=== PATIENT | male | born 1985 | race Caucasian/White ===

== ENCOUNTER 2021-02-26 02:28 | Day surgery (SDC) | payer BC, SELFPAY ==
[2021-02-08 14:44] VITALS: BMI 29.9
--- NOTE | 2021-02-26 07:20 | PM.HPGS ---
History of Present Illness History of Present Illness Consent: Risks, benefits, and alternatives have been discussed and questions answered. Patient agrees to proceed with procedure. Chief complaint: family hx of colon polyps Narrative: Michel Paula is a 35 year old male Colon cancer screening. His father had polyps at an early age. Review of Systems Review of Systems: All systems reviewed & are unremarkable except as noted in HPI and below PMFSH Family History Family History Mother Hypertension Social History Social History Alcohol intake: current Drinks per week: 14 Living arrangements: with family Meds Home Medications and Allergies Home Medications Medication Instructions Recorded Confirmed Type clomiphene citrate 50 mg PO DAILY 02/08/21 02/26/21 History Allergies Allergy/AdvReac Type Severity Reaction Status Date / Time Penicillins Allergy Unknown Hives Verified 02/26/21 11:23 Exam Const: General: alert Orientation/consciousness: patient oriented x3 Resp: Auscultation: clear to auscultation bilaterally Cardio: Rhythm: regular rhythm GI: GI Palp: Yes Soft to palpation and No Tenderness to palpation present (GI) Neuro: General: patient oriented x3 Assessment and Plan Assessment and plan (1) Colon cancer screening: Code(s): Z12.11 - Encounter for screening for malignant neoplasm of colon Status: Acute Assessment and Plan: Colonoscopy with possible biopsy or polypectomy or cautery or injection of substances.
--- NOTE | 2021-02-26 07:55 | P.PNAN_ITS ---
Anes - Initial Pre Proc Eval Procedure: Operation Date: 02/26/21 12:30 Proposed Procedures p Screening Colonoscopy - Dago Lucero MD Date/Time: 02/26/21 07:55 Surgeon: Dago Lucero MD Pre Op Diagnosis: family hx of colon polyps Patient Data Age: 35 Gender: M Height: 1.75 m Weight: 92 kg Allergies Allergy/AdvReac Type Severity Reaction Status Date / Time Penicillins Allergy Unknown Hives Verified 02/26/21 11:23 Home Medications Medication Instructions Recorded Confirmed Type clomiphene citrate 50 mg PO DAILY 02/08/21 02/08/21 History Patient hx anesthesia problems: none Family hx anesthesia problems: none Results Review: All pre-operative results and documents have been reviewed as part of the pre-operative evaluation. [facility] Family History Family History (Updated 10/17/13 @ 07:13 by DOCTOR UNKNOWN) Mother Hypertension Social History Social History Alcohol intake: current Drinks per week: 14 Living arrangements: with family Anes - Eval Final PreProcedure Day of Procedure 02/26/21 07:55 Patient weight: obese Heart: regular rate and rhythm Lungs: clear to auscultation and normal air movement Airway: Mallampati scale class II Neurological: alert and oriented Last oral intake: >/= 8 hours ASA classification: III Emergent: no Anesthetic plan: proceed Anesthesia type and monitoring: general GIVS and standard monitoring Results Review: All pre-operative results and documents have been reviewed as part of the pre-operative evaluation. Informed Consent: The patient's anesthetic plan and its attendant risks and benefits were discussed with the patient/family/POA. Questions were solicited and answers provided to the satisfaction of the patient/family/POA.
[2021-02-26 11:24] VITALS: BP 118/80; PULSE 86; RESP 16; TEMP 36.8; O2SAT 100
[2021-02-26] MEDS: LACTATED RINGERS 1,000 ML 150 ML IV CONT (11:37)
[2021-02-26 11:57] VITALS: BP 117/63; PULSE 80; RESP 17; O2SAT 96
[2021-02-26 12:07] VITALS: BP 125/95; PULSE 83; RESP 17; O2SAT 98
[2021-02-26 12:17] VITALS: BP 128/78; PULSE 64; RESP 18; O2SAT 100
== END 2021-02-26 12:28 | disposition home or self-care (01) ==
PROVIDERS: PCP Family Medicine Adolescent Medicine; Visit Provider Internal Medicine Gastroenterology
PROC: 0DJD8ZZ Inspection of Lower Intestinal Tract, Via Natural or Artificial Opening Endoscopic (ICD-10-PCS; CPT 45378; principal; 2021-02-26 12:30)
DX: Z12.11 Encounter for screening for malignant neoplasm of colon (principal); Z83.71 Family history of colonic polyps; E66.9 Obesity, unspecified; Z68.30 Body mass index [BMI] 30.0-30.9, adult
CPT/HCPCS: 45378; J2704; J7120

== ENCOUNTER 2021-11-16 18:29 | Observation (INO) | payer BC, SELFPAY ==
--- NOTE | ~2021-11-16 | CT_ITS ---
EXAMINATION: CT abdomen pelvis w con DATE: 11/16/2021 20:20 INDICATION: Lower abdominal pain TECHNIQUE: Computed tomography (CT) of the abdomen and pelvis was performed with 100 mL Omnipaque-350 intravenous contrast. Automated exposure control and iterative reconstruction technique were employe d. The dose-length product was 735.08 mGy-cm. COMPARISON: None FINDINGS: Lung bases are clear. Heart size is normal. No pericardial or pleural effusion. Liver, gallbladder, s pleen, pancreas, bilateral adrenal glands and kidneys are normal. There is mild stranding about the t ip the appendix which is dilated to 12 mm suspicious for acute appendicitis. No bowel obstruction. A few diverticula along the sigmoid colon without adjacent inflammatory change to suggest diverticuliti s. Bladder is normal. 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 Correlate with surgical hi story. No abscess or free intraperitoneal gas or fluid. No pathologically enlarged abdominal or pelvi c lymphadenopathy. Bones are unremarkable. IMPRESSION: 1. Mild inflammatory stranding surrounding the dilated fluid-filled tip of the appendix consistent wi th acute appendicitis. Dr. Aviles discussed these findings with Dr. Madrid at 8:42 PM. Reviewed, dictated and finalized at location A. IMPRESSION: 1. Mild inflammatory stranding surrounding the dilated fluid-filled tip of the appendix consistent with acute appendicitis. Dr. Aviles discussed these findi ngs with Dr. Madrid at 8:42 PM.
[2021-11-16 18:40] VITALS: BP 136/92; PULSE 75; RESP 16; TEMP 36.5; O2SAT 100
[2021-11-16 19:10] LABS: Basophils Absolute Auto 0.1 K/mm3 (0.0-0.1); Basophils Percent Auto 0.6 % (0.2-1.2); Eosinophils Absolute Auto 0.2 K/mm3 (0-0.3); Eosinophils Percent Auto 2.2 % (0-4.4); Hematocrit 46.3 % (42.0-52.0); Hemoglobin 15.8 g/dL (14.0-18.0); Immature Granulocyte Absolute 0.02 K/mm3 (0.00-0.031); Immature Granulocyte Percent A 0.2 % (0-0.5); Lymphocytes Absolute Auto 2.35 K/mm3 (0.9-3.2); Lymphocytes Percent Auto 26.1 % (18.3-44.2); Mean Corpuscular HGB Conc 34.1 g/dl (32-36); Mean Corpuscular Hemoglobin 31.2 pg (26-34); Mean Corpuscular Volume 91.5 fl (80-100); Mean Platelet Volume 9.1 fl (7.4-10.4); Monocytes Absolute Auto 1.1 K/mm3 (0.1-0.6); Monocytes Percent Auto 12.3 % (2.6-8.5); Neutrophils Absolute Auto 5.3 K/mm3 (1.3-6.7); Neutrophils Percent Auto 58.6 % (45.5-73.1); Platelet Count Result 357 k/mm3 (150-375); Red Blood Count 5.06 M/mm3 (4.6-6.20); Red Cell Distribution Width 12.2 % (11.5-14.5)
--- NOTE | 2021-11-16 19:30 | ED.GENADULT ---
HPI - General Adult General Chief complaint: Abdominal Pain Stated complaint: lower abd pain Time Seen by Provider: 11/16/21 19:10 History of Present Illness HPI narrative: 35-year-old male presented emerged department for evaluation of generalized lower abdominal pain. Patient states that he was feeling fine yesterday but symptoms began approxi-1:30 in the morning. Patient denies any change in bowel habits. Patient denies any associated nausea vomiting or diarrhea. Patient does have a prior surgical history of a pyloric stenosis repair as an infant but no other abdominal surgeries Related Data Home Medications Medication Instructions Recorded Confirmed clomiphene citrate 50 mg tablet 50 mg PO DAILY 02/08/21 11/16/21 loratadine 10 mg tablet (Claritin) 10 mg PO DAILY 11/16/21 11/16/21 Allergies Allergy/AdvReac Type Severity Reaction Status Date / Time Penicillins Allergy Unknown Hives Verified 11/16/21 18:42 Review of Systems Review of Systems: CONSTITUTIONAL: Denies fever, chills, or sweats. EYES: Denies visual changes, redness, or discharge. ENT: Denies rhinorrhea, congestion, sore throat, or otalgia. CARDIOVASCULAR: Denies chest pain, palpitations, or edema. RESPIRATORY: Denies cough or dyspnea. GASTROINTESTINAL: Lower abdominal pain GENITOURINARY: Denies dysuria or hematuria. SKIN: Denies rash or itching. MUSCULOSKELETAL: Denies back pain, joint pain, or myalgia. NEUROLOGIC: Denies headache, numbness, or weakness. PMFSH Family History Family History Mother Hypertension Social History Social History Smoking status: Never smoker Alcohol intake: current Drinks per week: 10 Substance use: never Substance use type: does not use Spiritual care concerns: No Exam Narrative: APPEARANCE: Well appearing, no pain, no distress, well-nourished. HEAD: normocephalic, atraumatic. EYES: PERRLA/EOMI, conjunctivae clear. NOSE: Normal no drainage EARS:TMS clear with good light reflex. THROAT: Pharynx clear, no exudate. NECK: Supple. No adenopathy, no masses. RESPIRATORY: Airway patent, respirations nonlabored. Clear to auscultation bilaterally, no rales, rhonchi, wheezing. CARDIOVASCULAR: Regular rate and rhythm without murmurs rubs or gallops. ABDOMINAL: Minimal lower abdominal tenderness to palpation at left lower and right lower quadrant MUSCULOSKELETAL: Moves all extremities. Strength/ROM intact, No edema, No calf tenderness. NEURO: Alert. Cranial nerves II through XII intact. Grossly intact SKIN: Warm, dry. Normal Color Course Course Emergency Course: CT showed evidence of an acute appendicitis. Patient was started on aztreonam due to his underlying penicillin allergy. Case was discussed with Dr. Pearl and he admitted the patient. Patient was made n.p.o. with anticipated surgery tomorrow. Patient and family were updated on the results of diagnosis and plan for admission. Vital Signs Vital signs: Vital Signs Temperature 97.7 F 11/16/21 18:40 Pulse Rate 75 11/16/21 18:40 Respiratory Rate 16 11/16/21 18:40 Blood Pressure 136/92 H 11/16/21 18:40 Pulse Oximetry 100 11/16/21 18:40 Oxygen Delivery Room Air 11/16/21 18:40 Temperature 97.6 F 11/17/21 00:00 Pulse Rate 73 11/17/21 00:00 Respiratory Rate 20 11/17/21 00:00 Blood Pressure 120/74 11/17/21 00:00 Pulse Oximetry 98 11/17/21 00:00 Oxygen Delivery Room Air 11/16/21 18:40 Medical Decision Making Vital Signs Vital Signs: Vital Signs Temperature 97.7 F 11/16/21 18:40 Pulse Rate 75 11/16/21 18:40 Respiratory Rate 16 11/16/21 18:40 Blood Pressure 136/92 H 11/16/21 18:40 Pulse Oximetry 100 11/16/21 18:40 Oxygen Delivery Room Air 11/16/21 18:40 Temperature 97.6 F 11/17/21 00:00 Pulse Rate 73 11/17/21 00:00 Respiratory Rate 20 11/17/21 00:00 Blood Pressure 12
[2021-11-16] MEDS: SODIUM CHLORIDE 0.9% IV 1,000 ML 999 ML IV CONT (20:03)
[2021-11-16 20:07] LABS: Alanine Aminotransferase 40 U/L (6-50); Albumin Level 4.5 g/dL (3.5-5.1); Alkaline Phosphatase 72 U/L (38-126); Anion Gap 13 mmol/L (8-16); Aspartate Amino Transferase 29 U/L (17-59); Bilirubin,Total 0.5 mg/dL (0.2-1.3); Blood Urea Nitrogen 15 mg/dL (9-20); Calcium 9.4 mg/dL (8.4-10.2); Carbon Dioxide 24 mmol/L (22-30); Chloride 102 mmol/L (98-107); Estimated CRCL calculation 85 ml/min; Estimated Glomerular Filt Rate > 60; Glucose 96 mg/dL (65-110); Lipase 50 U/L (23-300); Potassium 4.2 mmol/L (3.4-5.0); Sodium 139 mmol/L (137-145)
[2021-11-16 20:23] VITALS: O2SAT 100
[2021-11-16 20:24] VITALS: BP 133/87; O2SAT 100
[2021-11-16 20:31] LABS: Appearance Urine Clear (Clear); Bilirubin Urine Negative (Negative); Blood Urine Negative (Negative); Color Urine Yellow (Yellow); Glucose Urine UA Negative (Negative); Ketones Urine Negative (Negative); Leukocyte Esterase Ur Negative LEU/UL (Negative); Nitrate Urine Negative (Negative); Protein Urine Negative (Negative); Specific Grav Ur 1.015 (1.001-1.035); Urobilinogen Urine 0.2 mg/dL (<2.0); pH Urine 6.5 (5.0-9.0)
[2021-11-16 20:32] LABS: Add Urine Microscopic? NO
[2021-11-16] MEDS: AZTREONAM 2 GM in SODIUM CHLORIDE 0.9% IV 100 ML 200 ML IVPB (21:58)
--- NOTE | 2021-11-16 22:23 | ADMGEN ---
This patient, Michel Paula, was admitted to Medical Room 253-01. Patient/family oriented to hospital policies and general routines including ID bracelet, bed and alarms, visiting hours, pain management, procedures, bathroom and other care routines, personal items, smoking policy, room service/diet, and visiting hours. Information on how to activate the Rapid Response Team has been discussed. Patient/Family are encouraged to report perceived risks to care and to ask questions if they do not understand what they are told or what they should do.
[2021-11-16] MEDS: SODIUM CHLORIDE 0.9% IV 1,000 ML 125 ML IV CONT (22:34)
[2021-11-17] VITALS (14 sets, daily range): BP systolic 109–133; BP diastolic 71–84; PULSE 65–92; RESP 13–20; TEMP 36.2–37.3; O2SAT 94–100
[2021-11-17 04:43] LABS: Basophils Absolute Auto 0.1 K/mm3 (0.0-0.1); Basophils Percent Auto 0.7 % (0.2-1.2); Eosinophils Absolute Auto 0.2 K/mm3 (0-0.3); Eosinophils Percent Auto 2.5 % (0-4.4); Hematocrit 42.2 % (42.0-52.0); Hemoglobin 14.2 g/dL (14.0-18.0); Immature Granulocyte Absolute 0.02 K/mm3 (0.00-0.031); Immature Granulocyte Percent A 0.3 % (0-0.5); Lymphocytes Absolute Auto 1.83 K/mm3 (0.9-3.2); Lymphocytes Percent Auto 24.2 % (18.3-44.2); Mean Corpuscular HGB Conc 33.6 g/dl (32-36); Mean Corpuscular Volume 92.1 fl (80-100); Mean Platelet Volume 8.9 fl (7.4-10.4); Monocytes Absolute Auto 1.1 K/mm3 (0.1-0.6); Neutrophils Absolute Auto 4.3 K/mm3 (1.3-6.7); Neutrophils Percent Auto 57.3 % (45.5-73.1); Platelet Count Result 293 k/mm3 (150-375); Red Blood Count 4.58 M/mm3 (4.6-6.20); Red Cell Distribution Width 12.1 % (11.5-14.5); White Blood Count 7.6 K/mm3 (4.5-10.0)
[2021-11-17] MEDS: SODIUM CHLORIDE 0.9% IV 1,000 ML 125 ML IV CONT (05:33)
[2021-11-17] MEDS: AZTREONAM 2 GM in SODIUM CHLORIDE 0.9% IV 100 ML 200 ML IVPB (05:33)
--- NOTE | 2021-11-17 09:19 | PM.IMHP ---
H&P: HPI History of Present Illness Date/Time: 11/17/21 09:19 Chief Complaint: Mid abdominal pain for 24 hours Narrative: This patient is a pleasant 35-year-old white male who presented last evening to the emergency department here at [place] for evaluation of generalized mid to lower abdominal pain.? Patient states that he was feeling fine on Wednesday 11/15 but symptoms began approximately at 1:30 in the morning of Thursday 11/16.? Patient denies any change in bowel habits.? Patient denies any associated nausea vomiting or diarrhea. Patient does have a prior surgical history of a pyloric stenosis repair as an infant Review of Systems Review of Systems: All systems reviewed & are unremarkable except as noted in HPI and below (HPI) Constitutional: Constitutional: Reports as per HPI, Denies chills and Denies fever(s) Eyes: Eyes: Reports no additional eye complaints ENT: Reports Normal hearing present and Denies dizziness Cardiovascular: Cardiovascular: Reports no additional cardiovascular complaints, Denies chest pain and Denies irregular heart rhythm Respiratory: Respiratory: Reports no additional respiratory complaints Gastrointestinal: Gastrointestinal: Reports no additional gastrointestinal complaints, Denies abdominal pain and Denies bloating Genitourinary: Genitourinary: Denies hematuria Musculoskeletal: Musculoskeletal: Denies back pain Integumentary/Breasts: Skin/Breast: Reports system reviewed and no additional complaints, except as docu Neurologic: Reports Normal hearing present, Denies Abnormal speech present, Denies confusion and Denies dizziness Psychiatric: Psychiatric: Reports no additional psychiatric complaints and Denies confusion Endocrine: Endocrine: Reports no additional endocrine complaints Hematologic/Lymphatic: Hematologic/Lymphatic: Denies easy bleeding and Denies easy bruising Allergic/Immunologic: Allergic/Immunologic: Reports no additional allergic/immunologic complaints [facility] Past Medical History Medical History (Updated 11/17/21 @ 10:11 by Amado Pearl MD) Acute appendicitis Alcohol use History of testicular cancer Surgical History Surgical History (Updated 11/17/21 @ 10:11 by Amado Pearl MD) History of pyloroplasty Family History Family History (Updated 11/17/21 @ 11:08 by Amado Pearl MD) Mother Hypertension Father Colon polyp Social History Social History Smoking status: Never smoker Alcohol intake: current Drinks per week: 10 Substance use: never Substance use type: does not use Spiritual care concerns: No Meds Home Medications and Allergies Home Medications Medication Instructions Recorded Confirmed Type clomiphene citrate 50 mg tablet 50 mg PO DAILY 02/08/21 11/16/21 History loratadine 10 mg tablet (Claritin) 10 mg PO DAILY 11/16/21 11/16/21 History Allergies Allergy/AdvReac Type Severity Reaction Status Date / Time Penicillins Allergy Unknown Hives Verified 11/16/21 18:42 Vital Signs Vital Signs - 24 hr 11/16/21 18:40 11/16/21 20:23 11/16/21 20:24 Temperature 36.5 C Pulse Rate 75 Respiratory Rate 16 Blood Pressure 136/92 H 133/87 Pulse Oximetry 100 100 100 Oxygen Delivery Room Air 11/17/21 00:00 11/17/21 07:26 Temperature 36.4 C 36.2 C L Pulse Rate 73 65 Respiratory Rate 20 20 Blood Pressure 120/74 118/72 Pulse Oximetry 98 98 Oxygen Delivery Exam Const: General: cooperative, healthy appearing, comfortable, no acute distress, well developed, alert and awake; No confusion Orientation/consciousness: patient oriented x3 and No confusion HENMT: Head: normal to inspection Ears: hearing grossly normal bilaterally Mouth: Yes moist mucous membranes Teeth and gingiva: dentition normal Eyes: General: appearance normal, both eyes and all related structures Conjunctivae: conjunctivae normal Neck: Neck: normal visual inspec
--- NOTE | 2021-11-17 09:48 | WPDANESEPP ---
Anes - Eval Pre Procedure Procedure: Operation Date: 11/17/21 15:00 Proposed Procedures p Laparoscopic Appendectomy - Amado Pearl MD Date/Time: 11/17/21 09:48 Surgeon: Dae Pre Op Diagnosis: Acute Appendicitis Patient Data Age: 35 Gender: M Height: 1.75 m Weight: 90 kg Last Vital Signs Temp 97.1 F L 11/17/21 07:26 Pulse 65 11/17/21 07:26 Resp 20 11/17/21 07:26 BP 118/72 11/17/21 07:26 Pulse Ox 98 11/17/21 07:26 O2 Del Method Room Air 11/17/21 08:00 Allergies Allergy/AdvReac Type Severity Reaction Status Date / Time Penicillins Allergy Unknown Hives Verified 11/16/21 18:42 Home Medications Medication Instructions Recorded Confirmed Type clomiphene citrate 50 mg tablet 50 mg PO DAILY 02/08/21 11/16/21 History loratadine 10 mg tablet (Claritin) 10 mg PO DAILY 11/16/21 11/16/21 History Laboratory Tests 11/16/21 11/16/21 11/16/21 18:47 18:47 19:40 WBC 9.0 K/mm3 K/mm3 (4.5-10.0) RBC 5.06 M/mm3 M/mm3 (4.6-6.20) Hgb 15.8 g/dL g/dL (14.0-18.0) Hct 46.3 % % (42.0-52.0) MCV 91.5 fl fl (80-100) MCH 31.2 pg pg (26-34) MCHC 34.1 g/dl g/dl (32-36) RDW 12.2 % % (11.5-14.5) Plt Count 357 k/mm3 k/mm3 (150-375) MPV 9.1 fl fl (7.4-10.4) Immature Gran % (Auto) 0.2 % % (0-0.5) Neut % (Auto) 58.6 % % (45.5-73.1) Lymph % (Auto) 26.1 % % (18.3-44.2) [place] % (Auto) 12.3 % H % (2.6-8.5) Eos % (Auto) 2.2 % % (0-4.4) Baso % (Auto) 0.6 % % (0.2-1.2) Lymph # (Auto) 2.35 K/mm3 K/mm3 (0.9-3.2) [place] # (Auto) 1.1 K/mm3 H K/mm3 (0.1-0.6) Eos # (Auto) 0.2 K/mm3 K/mm3 (0-0.3) Baso # (Auto) 0.1 K/mm3 K/mm3 (0.0-0.1) Abs Immat Gran (auto) 0.02 K/mm3 K/mm3 (0.00-0.031) Absolute Neuts (auto) 5.3 K/mm3 K/mm3 (1.3-6.7) Absolute Nucleated RBC 0.0 K/mm3 K/mm3 (0.0-0.012) Nucleated RBC % 0.0 % % (0.0-0.2) Sodium 139 mmol/L mmol/L (137-145) Potassium 4.2 mmol/L mmol/L (3.4-5.0) Chloride 102 mmol/L mmol/L (98-107) Carbon Dioxide 24 mmol/L mmol/L (22-30) Anion Gap 13 mmol/L mmol/L (8-16) BUN 15 mg/dL mg/dL (9-20) Creatinine 1.10 mg/dL mg/dL (0.7-1.3) Estim Creat Clear Calc 85 ml/min ml/min Estimated GFR > 60 (59 - ) Glucose 96 mg/dL mg/dL (65-110) Calcium 9.4 mg/dL mg/dL (8.4-10.2) Total Bilirubin 0.5 mg/dL mg/dL (0.2-1.3) AST 29 U/L U/L (17-59) ALT 40 U/L U/L (6-50) Alkaline Phosphatase 72 U/L U/L (38-126) Total Protein 7.0 g/dL g/dL (6.3-8.2) Albumin 4.5 g/dL g/dL (3.5-5.1) Lipase 50 U/L U/L (23-300) Urine Color Yellow (Yellow) Urine Appearance Clear (Clear) Urine pH 6.5 (5.0-9.0) Ur Specific [place] 1.015 (1.001-1.035) Urine Protein Negative mg/dL mg/dL (Negative) Urine Glucose (UA) Negative mg/dL mg/dL (Negative) Urine Ketones Negative mg/dL mg/dL (Negative) Ur Blood (Man) Negative (Negative) Urine Nitrate Negative (Negative) Urine Bilirubin Negative (Negative) Urine Urobilinogen 0.2 mg/dL mg/dL (<2.0) Leukocyte Esterase Rfl Negative YONATAN/UL YONATAN/UL (Negative) 11/17/21 04:38 WBC 7.6 K/mm3 K/mm3 (4.5-10.0) RBC 4.58 M/mm3 L M/mm3 (4.6-6.20) Hgb 14.2 g/dL g/dL (14.0-18.0) Hct 42.2 % % (42.0-52.0) MCV 92.1 fl fl (80-100) MCH 31.0 pg pg (26-34) MCHC 33.6 g/dl g/dl (32-36) RDW 12.1 % % (11.5-14.5) Plt Count 293 k/mm3 k/mm3 (150-375) MPV 8.9 fl fl (7.4-10.4) Immature Gran % (Auto) 0.3 % % (0-0.5) Neut
--- NOTE | 2021-11-17 10:05 | PC.NURSE ---
Patient going down to surgery
--- NOTE | 2021-11-17 10:26 | P.PNAN_ITS ---
Anes - Eval Final PreProcedure Day of Procedure 11/17/21 10:26 Patient weight: overweight Heart: regular rate and rhythm Lungs: clear to auscultation and normal air movement Airway: Mallampati scale class II Neurological: alert and oriented Last oral intake: >/= 8 hours ASA classification: III Emergent: no Anesthetic plan: proceed Anesthesia type and monitoring: general ETT and standard monitoring Results Review: All pre-operative results and documents have been reviewed as part of the pre- operative evaluation. Informed Consent: The patient's anesthetic plan and its attendant risks and benefits were discussed with the patient/family/POA. Questions were solicited and answers provided to the satisfaction of the patient/family/POA.
[2021-11-17] MEDS: LACTATED RINGERS 1,000 ML 30 ML IV CONT ×2 (10:30→12:00)
--- NOTE | 2021-11-17 10:43 | WPDHPUPDATE1 ---
History and Physical Update Update Date/Time: 11/17/21 10:43 History and Physical has been reviewed, including an updated exam of the patient. There are NO changes in the patient's condition. Risks, benefits, and alternatives have been discussed and questions answered. Patient agrees to proceed with procedure.
[2021-11-17] MEDS: CLINDAMYCIN 900 MG/D5W 50 ML 900 MG/50 ML PIGGYBACK 50 MG IVPB (10:49)
[2021-11-17] MEDS: BUPIVACAINE/EPINEPHRINE 0.25% 50 ML VIAL 20 ML INFILTRATE (11:33)
[2021-11-17] MEDS: fentaNYL CITRATE INJ (*CRX) 100 MCG/2 ML VIAL 25 MCG IV PUSH ×5 (13:06→13:49)
[2021-11-17] MEDS: HYDROcodone/acetaminophen (*CRX) 7.5-325 MG TABLET 1 TAB PO (15:15)
--- NOTE | 2021-11-17 17:47 | W.PM.PROC2 ---
Procedure Note - Detailed Date of Procedure 11/17/21 Pre-op Diagnosis Acute Uncomplicated Appendicitis Post-op Diagnosis Same Procedure Performed laparoscopic appendectomy Surgeon Amado Pearl MD Actuarial Director DANNIELLE Epperson. OR Motor Coach Supervisor Anesthesia General Indications patient presented with mid abdominal pain. Workup revealed apparent uncomplicated appendicitis. No fecaliths were mentioned however, the patient felt more comfortable with proceeding with surgical intervention rather than treatment with antibiotics and having the possibility of recurrent appendicitis later in life. Therefore, risks benefits possible complications were discussed as noted on his updated H&P. The indication is acute appendicitis. Findings Patient had a retrocecal inflamed appendix which was densely adhered within the retroperitoneum behind the cecum and against the posterior wall of the cecum. No signs of perforation. Description of Procedure The patient was seen again in the Holding Room. The risks, benefits, complications, treatment options, and expected outcomes were discussed with the patient and/or family. The possibilities of reaction to medication, pulmonary aspiration, perforation of viscus, bleeding, recurrent infection, finding a normal appendix, the need for additional procedures, failure to diagnose a condition, and creating a complication requiring transfusion or operation were discussed. There was concurrence with the proposed plan and informed consent was obtained. The site of surgery was properly noted/marked. The patient was taken to Operating Room, and a time out was preformed which identified this as the proper patient, and the procedure verified as laparoscopic appendectomy, possible open. The patient was placed in the supine position and general anesthesia was induced, along with placement of an orogastric tube, SCD hose, and a Montilla catheter. The abdomen was prepped and draped in a sterile fashion. A 8 mm umbilical incision was made and the peritoneal cavity was accessed using the Veress needle technique. Once the abdomen was insufflated to 14 mmHg pressure a 5 mm XL trocar over the 0? 5 mm scope was carefully twisted into the abdomen via the umbilicus. The pneumoperitoneum was then established to steady pressure of 14 mm Hg. A 12 mm laparoscopic port was placed through a transverse suprapubic incision. An additional 5 mm cannula was then placed in in the left upper quadrant at the level fci between the left costal margin and the umbilicus under direct vision. A careful evaluation of the entire abdomen was carried out. The patient was placed in Trendelenburg and left lateral decubitus position. The small intestines were retracted in the cephalad and left lateral direction away from the pelvis and right lower quadrant. The patient was found to have an enlarged and inflamed appendix that was extending [into the right side Of and behind the cecum which was able to be rotated medially. I needed to use the L-shaped cautery device to free up adhesive bands lateral to the cecum and around the appendix in order to position it to be removed. This took about 30-45 more minutes than usual for dissection to carefully from the cecum without injury to the cecum. There was no evidence of perforation. The appendix was carefully dissected. Once it was free a 45 mm ethicon endogastroentestinal stapler with a vascular load was placed across the mesoappendix. This was fired and hemostasis was checked along the staple line and appeared to be adequate. Then another cartridge containing a vascular load applied and the stapler then placed right to the base of the appendix. This was also fired and bleeding was checked. There was minimal oozing from the staple line and after her removal of the appendix in the endobag described below 1 unfolded sterile 4 x 4 was placed into the abdomen and the blood absorbed onto the 4 x 4 and it was removed. The appendi
--- NOTE | 2021-11-17 19:32 | PM.DS ---
DS: Admitting Diagnosis Discharge Date 11/17/2021 Admitting Diagnosis Acute uncomplicated appendicitis DS: Discharge Diagnosis Discharge Diagnosis (1) Acute appendicitis: Qualifiers: Acute appendicitis type: unspecified acute appendicitis type Qualified Code(s): K35.80 - Unspecified acute appendicitis Code(s): K35.80 - Unspecified acute appendicitis Status: Acute Plan The patient had acute uncomplicated appendicitis. He had uneventful laparoscopic appendectomy mid day on the day admission and discharge. When checked later in the day still has some incisional pain but is tolerating liquids and the pain pills were working. He wished to be discharged. Instructions were given. (See discharge instruction sheet) will check him in the office in approximately 2 weeks. DS: Summary Hospital Course Reason for hospitalization: Acute uncomplicated appendicitis Hospital Course: The patient had acute uncomplicated appendicitis. He had uneventful laparoscopic appendectomy mid day on the day admission and discharge. When checked later in the day still has some incisional pain but is tolerating liquids and the pain pills were working. He wished to be discharged. Instructions were given. (See discharge instruction sheet) will check him in the office in approximately 2 weeks. Time Spent with Patient Time attestation: Total time spent providing and/or coordinating discharge services: Time spent: Less than 30 minutes Specific discharge activities: instructions wound care and diet. Exam Const: General: cooperative, comfortable, alert and awake Orientation/consciousness: patient oriented x3 HENMT: Head: normal to inspection Mouth: Yes moist mucous membranes Eyes: Sclera: sclerae normal Pupils: Equal, round and reactive pupils present Neck: Neck: normal visual inspection and no JVD Chest: Chest palpation & inspection: normal inspection of the chest Resp: Effort & Inspection: normal respiratory effort Auscultation: clear to auscultation bilaterally Cardio: Jugular venous distension: no JVD Rate: regular rate GI: Inspection: normal to inspection and incision ( and dry with surgical glue in place.) GI Palp: Yes abdominal tenderness ( Mainly in areas of incision.) Auscultation: normal bowel sounds Neuro: General: patient oriented x3 Cranial nerves: Yes Equal, round and reactive pupils present DS: Data Data Completed and Pending Pending studies at discharge: Pending at discharge 11/17/21 11:39 Surgical [PTH] Routine Labs on day of discharge: Labs from last 24 hours 11/17/21 11/16/21 11/16/21 04:38 19:40 18:47 WBC 7.6 RBC 4.58 L Hgb 14.2 Hct 42.2 MCV 92.1 MCH 31.0 MCHC 33.6 RDW 12.1 Plt Count 293 MPV 8.9 Immature Gran % (Auto) 0.3 Neut % (Auto) 57.3 Lymph % (Auto) 24.2 Emmet % (Auto) 15.0 H Eos % (Auto) 2.5 Baso % (Auto) 0.7 Lymph # (Auto) 1.83 Emmet # (Auto) 1.1 H Eos # (Auto) 0.2 Baso # (Auto) 0.1 Abs Immat Gran (auto) 0.02 Absolute Neuts (auto) 4.3 Absolute Nucleated RBC 0.0 Nucleated RBC % 0.0 Sodium 139 Potassium 4.2 Chloride 102 Carbon Dioxide 24 Anion Gap 13 BUN 15 Creatinine 1.10 Estim Creat Clear Calc 85 Estimated GFR > 60 Glucose 96 Calcium 9.4 Total Bilirubin 0.5 AST 29 ALT 40 Alkaline Phosphatase 72 Total Protein 7.0 Albumin 4.5 Lipase 50 Urine Color Yellow Urine Appearance Clear Urine pH 6.5 Ur Specific [place] 1.015 Urine Protein Negative Urine Glucose (UA) Negative Urine Ketones Negative Ur Blood (Man) Negative Urine Nitrate Negative Urine Bilirubin Negative Urine Urobilinogen 0.2 Leukocyte Esterase Rfl Negative Discharge Plan Discharge Attending physician on discharge: Amado Pearl Discharging Clinician: Amado Pearl Anticipated Discharge Date/Time:
== END 2021-11-17 20:04 | disposition home or self-care (01) ==
LOC: ANHED 20:45 → ANH2MED 21:56
PROVIDERS: General Practice; Admitting Provider Surgery; Emergency Provider Emergency Medicine; PCP Family Medicine Adolescent Medicine; Visit Provider Surgery
PROC: 0DTJ4ZZ Resection of Appendix, Percutaneous Endoscopic Approach (ICD-10-PCS; CPT 44970; principal; 2021-11-17 15:00)
DX: K35.80 Unspecified acute appendicitis (principal); E66.3 Overweight; Z68.29 Body mass index [BMI] 29.0-29.9, adult; Z85.47 Personal history of malignant neoplasm of testis; Z98.890 Other specified postprocedural states; Z72.89 Other problems related to lifestyle; Z79.899 Other long term (current) drug therapy
CPT/HCPCS: 44970; 36415; 74177; 80053; 81003; 83690; 85025; 88304; 96361; 96365; 96366; 96367; 99285; A9270; G0378; J1100; J2250; J2405; J2704; J3010; J7030; J7120; Q9967